=== PATIENT | female | born 1970 | race Hispanic/Latino ===

== ENCOUNTER 2017-12-20 13:01 | Emergency (ER) | payer SELFPAY ==
[2017-12-20] MEDS ORDERED: traMADol HCl 50 MG TAB ONE (13:24)
[2017-12-20] MEDS ORDERED: Ondansetron ODT 4 MG TAB ONE (13:24)
[2017-12-20] MEDS ORDERED: Diazepam 5 MG TAB ONE (13:24)
== END 2017-12-20 14:30 | disposition home or self-care (01) ==
LOC: ERS 13:01
DX: M54.5 Low back pain (principal)
CPT/HCPCS: 99283; Q0162

== ENCOUNTER 2018-07-21 11:06 | Emergency (ER) | payer SELFPAY ==
--- NOTE | 2018-07-21 11:47 | RAD ---
Right hip 2 views INDICATION: Low back pain with referral of pain into the right hip. COMPARISON: None FINDINGS: Bones: No acute osseous abnormality. Bone mineralization appears within normal limits. Hip joint: There is mild osteoarthrosis of the right hip. SI joints and symphysis pubis: There is mild degenerative change of the right SI joint and symphysis pubis. Intrapelvic contents: Visualized bowel gas pattern is within normal limits. Surrounding soft tissues: Radiographically normal. IMPRESSION: 1. No acute osseous abnormality.
[2018-07-21] MEDS ORDERED: Lorazepam 2 MG/ML VIAL ONE (12:55)
[2018-07-21] MEDS ORDERED: Dexamethasone 10 MG/ML VIAL ONE (12:55)
== END 2018-07-21 13:20 | disposition home or self-care (01) ==
LOC: ERS 11:06
DX: M54.41 Lumbago with sciatica, right side (principal)
CPT/HCPCS: 96372; J1100; J2060

== ENCOUNTER 2018-07-31 07:17 | Emergency (ER) | payer SELFPAY | END 2018-07-31 09:07 | disposition home or self-care (01) | LOC: ERS 07:17 | DX: M54.31 Sciatica, right side (principal) | CPT/HCPCS: 99283 ==

== ENCOUNTER 2018-09-27 10:19 | Emergency (ER) | payer SELFPAY ==
[2018-09-27 12:31] LABS: #Basophils 0.1 thou/uL (0.0-0.2); #Eosinphils 0.5 thou/uL (0.0-0.7); #Lymphocytes 1.7 thou/uL (1.20-3.40); #Monocytes 0.5 thou/uL (0.11-0.59); #Neutrophils 3.8 thou/uL (1.40-6.50); %Basophils 0.9 % (0.0-1.0); %Eosinophils 7.8 % (0.0-10.0); %Lymphocytes 26.1 % (21.0-51.0); %Monocytes 7.1 % (0.0-10.0); %Neutrophils 58.1 % (42.0-75.0); Hemoglobin 9.7 g/dL (12.0-16.0); Mean Corpuscular HGB CONC 34.1 g/dL (32.0-36.0); Mean Corpuscular Hemoglobin 31.3 pg (27.0-31.0); Mean Corpuscular Volume 91.7 fL (78.0-98.0); Mean Platelet Volume 6.1 fL (7.4-10.4); Platelet Count 362 thou/uL (130-400); RBC Distribution Width 11.7 % (11.5-14.5); Red Blood Cell (RBC) Count 3.09 mill/uL (4.20-5.40); White Blood Cell (WBC) Count 6.6 thou/uL (4.8-10.8)
[2018-09-27 12:41] LABS: ALT (SGPT) 43 U/L (8-55); AST (SGOT) 54 U/L (5-34); Alkaline Phosphatase 57 U/L (40-150); Anion Gap 13 mmol/L (10-20); BUN (Urea Nitrogen) 6 mg/dL (7.0-18.7); Bilirubin, Total 0.3 mg/dL (0.2-1.2); Calc. Creatinine Clearance 0 mL/min (70-130); Calcium 9.3 mg/dL (7.8-10.44); Carbon Dioxide 23 mmol/L (22-29); Chloride 102 mmol/L (98-107); Estimated GFR-MDRD 87; Globulin 2.9 g/dL (2.4-3.5); Glucose 266 mg/dL (70-105); Potassium 3.7 mmol/L (3.5-5.1); Protein, Total 6.9 g/dL (6.0-8.3); Sodium 134 mmol/L (136-145)
[2018-09-27 12:55] LABS: BHCG - Serum Negative (NEGATIVE); Pregs Control Background? CLEAR/WHITE (CLR/WHITE); Pregs Control Bar Appear? YES (CONTROL BAR)
--- NOTE | 2018-09-27 13:00 | ULT ---
PELVIC ULTRASOUND: HISTORY: Vaginal bleeding since the beginning of August. FINDINGS: Real-time imaging of the pelvis was obtained transabdominally as well as with an endovaginal probe. This shows a uterus measuring 3.9 x 4.7 x 8.3 cm. Endometrium is in the 7-8 mm range. The right and left ovaries are normal in size. A small follicle is seen involving the right ovary wh ich is subcentimeter in size and an approximately 2.8 cm left ovarian cyst is demonstrated. DOPPLER EVALUATION WITH SPECTRAL ANALYSIS: Normal flow is shown to both adnexa. IMPRESSION: 1. A 2.8 cm left ovarian cyst. 2. Heterogenous-appearing uterus, but no focal fibroids identified. POS: [facility]
== END 2018-09-27 12:59 | disposition home or self-care (01) ==
LOC: ERS 10:19
DX: N93.9 Abnormal uterine and vaginal bleeding, unspecified (principal); D64.9 Anemia, unspecified
CPT/HCPCS: 36415; 76856; 80053; 84703; 85025

== ENCOUNTER 2019-08-07 10:48 | Observation (INO) | payer SELFPAY ==
[2019-08-07 11:46] LABS: PTT 29.6 sec (22.9-36.1); Prothrombin Time 12.8 sec (12.0-14.7)
[2019-08-07 11:49] LABS: #Basophils 0.1 thou/uL (0.0-0.2); #Eosinphils 0.5 thou/uL (0.0-0.7); #Lymphocytes 2.3 thou/uL (1.20-3.40); #Monocytes 0.5 thou/uL (0.11-0.59); #Neutrophils 5.5 thou/uL (1.40-6.50); %Basophils 0.7 % (0.0-1.0); %Eosinophils 5.8 % (0.0-10.0); %Lymphocytes 25.5 % (21.0-51.0); %Monocytes 5.9 % (0.0-10.0); %Neutrophils 62.1 % (42.0-75.0); Hemoglobin 7.3 g/dL (12.0-16.0); Mean Corpuscular HGB CONC 30.7 g/dL (32.0-36.0); Mean Corpuscular Hemoglobin 21.4 pg (27.0-31.0); Mean Corpuscular Volume 69.7 fL (78.0-98.0); Mean Platelet Volume 7.7 fL (7.4-10.4); Platelet Count 491 thou/uL (130-400); White Blood Cell (WBC) Count 8.9 thou/uL (4.8-10.8)
[2019-08-07 11:53] LABS: BHCG - Serum Negative (NEGATIVE); Pregs Control Background? CLEAR/WHITE (CLR/WHITE); Pregs Control Bar Appear? YES (CONTROL BAR)
[2019-08-07 11:59] LABS: ALT (SGPT) 38 U/L (8-55); AST (SGOT) 49 U/L (5-34); Albumin 4.3 g/dL (3.5-5.0); Alkaline Phosphatase 75 U/L (40-110); Anion Gap 14 mmol/L (10-20); BUN (Urea Nitrogen) 7 mg/dL (7.0-18.7); Bilirubin, Total 0.3 mg/dL (0.2-1.2); Calc. Creatinine Clearance 0 mL/min (70-130); Calcium 9.1 mg/dL (7.8-10.44); Carbon Dioxide 23 mmol/L (22-29); Chloride 101 mmol/L (98-107); Estimated GFR-MDRD 79; Globulin 3.4 g/dL (2.4-3.5); Glucose 276 mg/dL (70-105); Protein, Total 7.7 g/dL (6.0-8.3); Sodium 134 mmol/L (136-145)
--- NOTE | 2019-08-07 14:38 | ULT ---
PELVIC ULTRASOUND INCLUDING TRANSABDOMINAL AND TRANSVAGINAL AND VASCULAR DUPLEX WITH COLOR AND SPECTR AL DOPPLER IMAGING: HISTORY: Heavy bleeding, anemia. COMPARISON: 09/27/2018. FINDINGS: Uterus is somewhat heterogeneously echogenic measuring 8.4 x 3.6 x 5.0 cm, but no focal fibroids. En dometrium 0.7 cm. Right ovary measures 2.9 x 3.3 x 4.7 cm and contains a 2.2 x 2.5 x 3.5 cm septated cyst. The left ov alberto is not visualized. Multiple nabothian cysts are noted. No abnormal fluid collection. IMPRESSION: Septated right ovarian cyst. Nonvisualized left ovary. Depending upon concern, a followup ultrasoun d in 1-3 months might be considered to evaluate the septated right ovarian cyst. POS: [facility]
[2019-08-07] MEDS ORDERED: Ondansetron PF 4 MG/2 ML Vial IVP PRN (15:54)
[2019-08-07] MEDS ORDERED: Acetaminophen 500 MG TAB PO PRN (15:54)
[2019-08-07] MEDS ORDERED: Ondansetron ODT 4 MG TAB PO PRN (15:54)
[2019-08-07 17:14] VITALS: BMI 31.4
[2019-08-07] MEDS ORDERED: medroxyPROGESTERone Acetate 5 MG TAB PO SCH (17:30)
[2019-08-07] MEDS ORDERED: medroxyPROGESTERone Acetate 2.5 MG TAB PO SCH (17:45)
[2019-08-07] MEDS: Sodium Chloride 0.9% 1,000 ML IV SCH ×2 (17:57→20:08)
[2019-08-07] MEDS: Estradiol 1 MG TAB PO SCH (20:08)
[2019-08-07] MEDS: Famotidine 20 MG TAB PO SCH (20:08)
--- NOTE | 2019-08-07 20:14 | HP ---
PRIMARY CARE PROVIDER: Dr. Roland at [facility], [place], [place]. CHIEF COMPLAINT: Fatigue, dizziness, and shortness of breath. HISTORY OF PRESENT ILLNESS: This is a 48-year-old female, who presents to [facility] Emergency Department complaining of 2-week history of progressive fatigue, dizziness, shortness of breath and decreased activity level. The patient admits to heavy menstrual cycle beginning 07/21/2019, saturating up to 8 pads per day with heavy clots. The patient states her normal cycles are approximately a week to week and a half, resolving. The patient admits to some lower abdominal cramping, but denied any recent exposure to hormones or previous history of hormone replacement. The patient denies any prior history of blood transfusions. The patient states she was originally scheduled for outpatient visit on 08/19/2019 at [facility], but has not had followup. The patient states she has had two prior C-sections. No recent instrumentation and states her last Pap smear was many years ago. The patient denies any prior history of abnormal Pap smears. The patient denies taking anticoagulants or aspirin and states she has allergies to NSAIDs. In the emergency room, the patient underwent general evaluation including CBC showing a hemoglobin of 7.3. Previous hemoglobin on record and [employer] shows a level of 9.7 on 09/27/2018. The patient was typed and crossed for 2 units of packed red blood cells and had a serum beta-hCG, which was negative. PAST MEDICAL HISTORY: 1. Carpal tunnel syndrome. 2. Anemia, likely iron deficiency. No prior transfusions. PAST SURGICAL HISTORY: 1. Status post cholecystectomy. 2. Status post section x2. 3. Status post right carpal tunnel release. CURRENT MEDICATIONS: Reviewed and negative. ALLERGIES: NSAIDS. FAMILY HISTORY: No inheritable disease per patient report. SOCIAL HISTORY: . Resides in the [place], [place] area. No current alcohol, tobacco, or illicit drug use. Functional of all activities of daily living. REVIEW OF SYSTEMS: CONSTITUTIONAL: Negative for weight loss or gain, ability to conduct usual activities. SKIN: Negative for rash, itching. EYES: Negative for double vision, pain. ENT/MOUTH: Negative for nose bleeding, neck stiffness, pain, tenderness. CARDIOVASCULAR: Negative for palpitations, dyspnea on exertion, orthopnea. RESPIRATORY: Negative for shortness of breath, wheezing, cough, hemoptysis, fever or night sweats. GASTROINTESTINAL: Negative for poor appetite, abdominal pain, heartburn, nausea , vomiting, constipation, or diarrhea. GENITOURINARY: Negative for urgency, frequency, dysuria, nocturia. MUSCULOSKELETAL: Negative for pain, swelling. NEUROLOGIC/PSYCHIATRIC: Negative for anxiety, depression. ALLERGY/IMMUNOLOGIC: Negative for skin rash, bleeding tendency. Otherwise negative except as stated per HPI. PHYSICAL EXAMINATION: VITAL SIGNS: On admission, blood pressure 128/81, pulse 96, respiratory rate 18 , temperature 98.7 degrees Fahrenheit, O2 saturation 99% on room air. GENERAL APPEARANCE: This is a 48-year-old female, alert and oriented x3, pleasant, responsive, in no acute distress. HEENT: Pupils are equal, round, reactive to light and accommodation. Extraocular muscles are intact. No scleral icterus. No conjunctival injection. Nares patent. OP is clear. Teeth in fair repair. NECK: Supple. No cervical adenopathy. No thyromegaly. No carotid bruits. No JVD appreciated. Cervical spine with full active and passive range of motion. No meningeal signs noted. CHEST: Lungs are clear to auscultation bilaterally. CARDIOVASCULAR EXAM: S1, S2 with tachycardia. No murmur, rub, or gallop appreciated. ABDOMEN: Obese, soft, nontender, and nondistended. Bowel sounds are positive in all 4 quadrants. There is no hepatosplenomegaly. No abdominal bruits. No rebound or guarding appreciated. EXTREMITIES: Warm and dry with fair turgor. No clubbing, cyanosis, or asymmetric edema appreciated. Pulses palpable distally at the dorsalis pedis, posterior tibial, and popliteal arteries bilaterally. Capillary refill less than 2 seconds. SKIN: Shows pale nailbeds. NEUROLOGIC: Cranial nerves 2 through 12 are grossly intact. No focal or lateralizing signs appreciated. PERTINENT LABORATORY AND X-RAY FINDINGS: Sodium 134, potassium 4.0, chloride 101, CO2 of 23, BUN 7, creatinine 0.78, estimated GFR 79, glucose 276, calcium 9.1, AST 49, ALT of 38, albumin 4.3. Serum beta-hCG negative. CBC showed a white blood cell count 8.9, hemoglobin 7.3, hematocrit 24, MCV 70, platelet count 491 with normal differential. PT 12.8, INR 1.0, PTT 29.6. Pelvic ultrasound dated 08/07/2019, showed septated right ovarian cyst. Nonvisualized left ovary. Endometrium 0.7 cm. ASSESSMENT AND PLAN: 1. Symptomatic anemia. The patient will be observed on the medical floor. Suspect secondary to menorrhagia. Type and cross for 2 units of packed red blood cells and transfuse when available. Serial CBC monitoring. Check iron studies, ferritin, reticulocyte count and stool Hemoccult. 2. Menorrhagia. Suspect underlying etiology to presentation. Consult the DIAL PAINTER hospitalist for further evaluation and coordination of outpatient followup. 3. Thrombocytosis. Suspect reactive in the context of #1. Repeat platelet count in the a.m. 4. Hyperglycemia. We will check A1c level in the a.m. Monitor serial Accu- Cheks. 5. Prophylaxis. SCDs while in bed. Pepcid 20 mg p.o. b.i.d. 6. Code status is full. Surrogate medical decision maker is the patient's spouse. Job ID: [id number] MTDD
--- NOTE | 2019-08-07 23:00 | CON ---
DATE OF CONSULTATION: 08/07/2019 CHIEF COMPLAINT: Menorrhagia with symptomatic anemia. HISTORY OF PRESENT ILLNESS: The patient is a 48-year-old female presenting with heavy vaginal bleeding since July 18. She reports that she has been using about 6 to 8 pads per day with about 50% saturation since that time. She reports a history of regular monthly predictable periods beginning in the middle of the month and lasting more than 5 days until this event. She has had one other episode about a year ago, where she reports she was bleeding for about 2 to 3 months. Other than those 2 episodes, she has had regular predictable periods. The patient does have an appointment in place at [facility] with Dr. Ny, but does not have an appointment set up for an MORTGAGE UNDERWRITER at this time. She reports dizziness, fatigue, lightheadedness, and headache upon presentation. She has attempted iron supplementation in the past, but reports it has caused her bad stomach aches. She denies smoking and denies any other medical conditions that she is aware of. The patient denies fever. She denies chest pain. Denies cough. Denies chest pain or shortness of breath. She denies any new rashes. She denies nausea or vomiting. She denies diarrhea or constipation. She denies hip problems, although she does report sore hips when she has her periods. PAST MEDICAL HISTORY: Negative. PAST SURGICAL HISTORY: She has had a cholecystectomy. She has also had 2 prior C-sections and she has had carpal tunnel surgery. FAMILY HISTORY: The patient reports her mother and her sisters have all had heavy periods around this time requiring hysterectomies. SOCIAL HISTORY: The patient reports social drinking. Again denies tobacco use or drug use. MEDICATIONS: None. ALLERGIES: IBUPROFEN. SHE REPORTS ANAPHYLACTIC REACTION AND WAS TAKEN TO THE HOSPITAL THE LAST TIME SHE USED IT. PHYSICAL EXAMINATION: VITAL SIGNS: Blood pressure 131/89, temperature 98.1, pulse of 93, respiratory rate 18, O2 sats 100% on room air. GENERAL: She appears to be in no acute distress. She is alert, oriented, cooperative, and pleasant to interact with. HEENT: Head is normocephalic and atraumatic. LUNGS: Clear to auscultation bilaterally. HEART: Has a regular rate and rhythm. ABDOMEN: Gravid and soft, nontender. EXTREMITIES: Nontender, nonedematous. Looking at the pad she has on time of evaluation is only slightly streaked and has not required a pad change since arriving to the emergency room. LABORATORY DATA: Hemoglobin 7.3, hematocrit 23.7, MCV of 69.7, and platelets of 491,000. AST of 49, ALT of 38. test is negative. Pelvic ultrasound shows a normal-appearing uterus with an endometrium of 0.7 cm and a small 2 x 3.5 cm septated cyst on the right ovary. ASSESSMENT AND PLAN: The patient is a 48-year-old female with a recent history of heavy vaginal bleeding resulting in symptomatic anemia and is being transfused currently. By history, the patient has a little concern for any kind of concerning pathology, i.e. endometrial cancer. She has a fairly thin endometrial stripe and no significant irregularities. The patient is a good candidate for a trial of oral contraceptive pills in an attempt to manage her periods for the next couple of years until she enters menopause. I have also ordered a TSH as this at times can be a source of irregular bleeding. The patient does not appear to have any symptoms concerning for hypothyroidism. Today, I have started her on 10 mg of medroxyprogesterone daily and 2 mg of estradiol daily while here in the hospital. I have also prescribed Sprintec for her to use in the foreseeable future to help manage her future periods as this may or may not be related to entering a perimenopausal state. The patient is currently without insurance, but if possible, I would recommend followup MORTGAGE UNDERWRITER to verify tolerance of the control pills and to make sure there are no other concerns or evaluation needed. I have submitted a referral to [facility] for followup should that be necessary. Otherwise, the patient can follow up with [facility] to continue management of her control use for bleeding control. Job ID: [id number]
[2019-08-08] MEDS: Sodium Chloride 0.9% 1,000 ML IV SCH (05:10)
[2019-08-08 05:45] LABS: Reticulocyte Count 2.2 % (0.5-1.5)
[2019-08-08 05:52] LABS: Hemoglobin A1c 7.4 % (4.0-6.0)
[2019-08-08 06:15] LABS: Anisocytosis SLIGHT = 6-15 cells (100X) (0-5/hpf); Band 1 % (5-11); Eosinophils 2 % (0-10); Hemoglobin 9.4 g/dL (12.0-16.0); Hypochromia SLIGHT = 6-15 cells (100X) (0-5/hpf); Lymphocytes 34 % (21-51); MDiff Complete? YES; Mean Corpuscular HGB CONC 29.4 g/dL (32.0-36.0); Mean Corpuscular Hemoglobin 22.1 pg (27.0-31.0); Mean Corpuscular Volume 75.3 fL (78.0-98.0); Mean Platelet Volume 8.7 fL (7.4-10.4); Microcytosis SLIGHT = 6-15 cells (100X) (0-5/hpf); Monocytes 9 % (0-10); Myelocyte 1 % (0-0); Neutrophil 53 % (42-75); Platelet Count 440 thou/uL (130-400); Platelet Morphology Comment Appears Increased; Polychromasia SLIGHT = 2-3 cells (100X) (0-2/hpf); RBC Distribution Width 18.8 % (11.5-14.5); Red Blood Cell (RBC) Count 4.26 mill/uL (4.20-5.40)
[2019-08-08 06:22] LABS: ALT (SGPT) 33 U/L (8-55); AST (SGOT) 35 U/L (5-34); Albumin 3.5 g/dL (3.5-5.0); Alkaline Phosphatase 63 U/L (40-110); Anion Gap 12 mmol/L (10-20); BUN (Urea Nitrogen) 5 mg/dL (7.0-18.7); Bilirubin, Total 0.6 mg/dL (0.2-1.2); Calc. Creatinine Clearance 126 mL/min (70-130); Carbon Dioxide 20 mmol/L (22-29); Chloride 105 mmol/L (98-107); Estimated GFR-MDRD Greater than 90; Glucose 221 mg/dL (70-105); Iron 97 ug/dL (50-170); Potassium 3.6 mmol/L (3.5-5.1); Protein, Total 6.5 g/dL (6.0-8.3); Sodium 133 mmol/L (136-145)
--- NOTE | 2019-08-08 07:36 | PRG ---
DATE OF SERVICE: 08/08/2019 SUBJECTIVE: The patient is a 48-year-old female, who was admitted for symptomatic anemia and history of menorrhagia. She has since received 2 units of packed red blood cells. Her bleeding, this morning, she reports has been scant, much improved since the last several weeks. She has changed her pad twice overnight with quarter-size staining. OBJECTIVE: VITAL SIGNS: This morning, blood pressure 125/82, heart rate of 91, respiratory rate of 18, saturating 98% on room air, and temperature 98.2. GENERAL: She appears to be in no acute distress. She is resting comfortably. LABORATORY DATA: TSH was 2.4. Her hemoglobin and hematocrit after her blood transfusion are 9.4 and 32.1. ASSESSMENT AND PLAN: The patient is a 48-year-old female with menorrhagia and acute blood loss anemia, status post 2 units of packed red blood cells. Her bleeding has pretty much spontaneously resolved. We did add medroxyprogesterone and some Estrace yesterday. I anticipate the patient being discharged home today. We from our standpoint will be signing off and have recommended followup with [facility] in the next few weeks should she continue to have problems. She does have Sprintec order at discharge for her to take as a means to control her periods and in the foreseeable future, those have been sent off to pharmacy of her choice. Thank you for the opportunity to work with Ms. Ortega. Job ID: [id number]
[2019-08-08] MEDS ORDERED: medroxyPROGESTERone Acetate 2.5 MG TAB PO SCH (09:00)
[2019-08-08] MEDS ORDERED: Estradiol 1 MG TAB PO SCH (09:00)
[2019-08-08] MEDS: Famotidine 20 MG TAB PO SCH (09:44)
[2019-08-08] MEDS: Estradiol 1 MG TAB PO SCH (09:44)
[2019-08-08 14:57] VITALS: BP 124/80; TEMP 97.8
--- NOTE | 2019-08-08 23:55 | DIS ---
DATE OF ADMISSION: 08/07/2019 DATE OF DISCHARGE: 08/08/2019 DISCHARGE DIAGNOSES: 1. Symptomatic anemia status post 2 units of packed red blood cells. 2. Menorrhagia. 3. Thrombocytosis, reactive. 4. Hyperglycemia with apparent new onset diagnosis of diabetes mellitus type 2. CONSULTATIONS: Dr. Powers with [facility]. PERTINENT LABORATORY AND X-RAY FINDINGS: Sodium ranged between 133 to 134. Hemoglobin A1c 7.4. Serum iron level 97, ferritin 17.72. AST 35, ALT of 33, alkaline phosphatase 63. Vitamin B12 level 271, folate 12.6, TSH 2.48. Serum beta hCG negative. CBC showed a hemoglobin ranging between 7.3 to 9.4, MCV 75, platelet count ranged between 440 to 491. Reticulocyte count 2.2. PT 12.8, INR 1.0, PTT 29.6. Pelvic ultrasound dated 08/07/2019, showed septated right ovarian cyst. HOSPITAL COURSE: The patient was initially evaluated after presenting with symptomatic anemia including dizziness, shortness of breath, and fatigue. Initial hemoglobin at 7.3, receiving 2 units of packed red blood cells with repeat hemoglobin of 9.4. The patient with concomitant menorrhagia, likely the underlying etiology of patient's presentation. The patient was evaluated by the COMMUNITY OUTREACH DIRECTOR hospitalist service with recommendations for hormone replacement therapy including control pills to control menstrual cycles. The patient received estradiol and progesterone with near resolution of the menorrhagia by the time of discharge. Current recommendations are for outpatient followup and continuation of hormone therapy. The patient was also noted with hyperglycemia with a hemoglobin A1c of 7.4. The patient was cautioned regarding ongoing dietary intake and may need additional medical therapy in addition to dietary measures and exercise. The patient verbalized understanding and agreement and will seek outpatient followup with her primary care provider to discuss treatment options and surveillance. I have examined the patient at the time of discharge and discussed followup instructions. The patient verbalized understanding and agreement ready for discharge on 08/08/2019. DISCHARGE MEDICATIONS: 1. Norgestimate-ethinyl estradiol one tablet p.o. daily. 2. Simvastatin 20 mg p.o. at bedtime. FOLLOWUP: The patient may follow up with her primary care provider, Ellyn Jarvis, at [facility] in [place], [place], within 5 to 7 days of discharge. The patient may follow up with [facility] in 2 to 3 weeks after discharge. CONDITION ON DISCHARGE: Stable. ACTIVITY: Ad-su. DIET: ADA and heart healthy. CODE STATUS: Full. DISPOSITION: Home on 08/08/2019. Job ID: [id number]
== END 2019-08-08 12:14 | disposition home or self-care (01) ==
LOC: ERS 10:48 → T4-B 14:21
PROVIDERS: ADMIT Family Medicine; ATTEND Family Medicine
DX: N92.0 Excessive and frequent menstruation with regular cycle (principal); D62 Acute posthemorrhagic anemia; D47.3 Essential (hemorrhagic) thrombocythemia; E11.65 Type 2 diabetes mellitus with hyperglycemia; Z88.6 Allergy status to analgesic agent; Z91.010 Allergy to peanuts
CPT/HCPCS: 36415; 36416; 36430; 76856; 80053; 82607; 82728; 82746; 83036; 83540; 84443; 84703; 85007; 85025; 85027; 85046; 85610; 85730; 86850; 86900; 86901; G0378; P9016

== ENCOUNTER 2019-10-17 11:12 | Emergency (ER) | payer SELFPAY ==
--- NOTE | 2019-10-17 11:42 | RAD ---
RADIOGRAPH CHEST 1 VIEW: DATE: 10/17/2019 HISTORY: Worsening chest pain right side FINDINGS: There are no airspace densities, pulmonary edema, pneumothorax, or cardiomegaly. IMPRESSION: No acute cardiopulmonary findings.
[2019-10-17 11:53] LABS: #Basophils 0.1 thou/uL (0.0-0.2); #Eosinphils 0.5 thou/uL (0.0-0.7); #Lymphocytes 2.1 thou/uL (1.20-3.40); #Monocytes 0.5 thou/uL (0.11-0.59); #Neutrophils 5.2 thou/uL (1.40-6.50); %Basophils 0.8 % (0.0-1.0); %Eosinophils 6.5 % (0.0-10.0); %Lymphocytes 25.3 % (21.0-51.0); %Monocytes 5.5 % (0.0-10.0); %Neutrophils 61.9 % (42.0-75.0); Hemoglobin 12.9 g/dL (12.0-16.0); Mean Corpuscular HGB CONC 32.9 g/dL (32.0-36.0); Mean Corpuscular Hemoglobin 29.4 pg (27.0-31.0); Mean Corpuscular Volume 89.4 fL (78.0-98.0); Mean Platelet Volume 7.9 fL (7.4-10.4); Platelet Count 418 thou/uL (130-400); RBC Distribution Width 18.3 % (11.5-14.5); Red Blood Cell (RBC) Count 4.38 mill/uL (4.20-5.40); White Blood Cell (WBC) Count 8.4 thou/uL (4.8-10.8)
[2019-10-17 12:14] LABS: ALT (SGPT) 32 U/L (8-55); AST (SGOT) 26 U/L (5-34); Alkaline Phosphatase 54 U/L (40-110); Anion Gap 15 mmol/L (10-20); BUN (Urea Nitrogen) 6 mg/dL (7.0-18.7); Bilirubin, Total 0.3 mg/dL (0.2-1.2); Calc. Creatinine Clearance 0 mL/min (70-130); Calcium 8.8 mg/dL (7.8-10.44); Carbon Dioxide 20 mmol/L (22-29); Chloride 103 mmol/L (98-107); Estimated GFR-MDRD 84; Globulin 3.1 g/dL (2.4-3.5); Glucose 187 mg/dL (70-105); Potassium 4.2 mmol/L (3.5-5.1); Protein, Total 7.1 g/dL (6.0-8.3); Sodium 134 mmol/L (136-145)
[2019-10-17] MEDS ORDERED: methylPREDNISolone Sod Succ/PF 125 MG/2 ML VIAL ONE (12:22)
== END 2019-10-17 12:36 | disposition home or self-care (01) ==
LOC: ERS 11:12
DX: R07.89 Other chest pain (principal); D64.9 Anemia, unspecified; Z79.899 Other long term (current) drug therapy
CPT/HCPCS: 36415; 71045; 80053; 84484; 85025; 93005; 96374; J2930

== ENCOUNTER 2021-03-29 23:58 | Emergency (ER) | payer SELFPAY ==
[2021-03-30 00:39] LABS: #Basophils 0.1 thou/uL (0.0-0.2); #Eosinphils 0.5 thou/uL (0.0-0.7); #Monocytes 0.5 thou/uL (0.11-0.59); #Neutrophils 3.3 thou/uL (1.40-6.50); %Basophils 1.2 % (0.0-1.0); %Eosinophils 6.7 % (0.0-10.0); %Lymphocytes 40.3 % (21.0-51.0); %Monocytes 7.1 % (0.0-10.0); %Neutrophils 44.7 % (42.0-75.0); Hemoglobin 12.7 g/dL (12.0-16.0); Mean Corpuscular HGB CONC 34.3 g/dL (32.0-36.0); Mean Corpuscular Hemoglobin 31.1 pg (27.0-31.0); Mean Corpuscular Volume 90.7 fL (78.0-98.0); Mean Platelet Volume 5.6 fL (7.4-10.4); Platelet Count 586 thou/uL (130-400); RBC Distribution Width 11.4 % (11.5-14.5); Red Blood Cell (RBC) Count 4.09 mill/uL (4.20-5.40); White Blood Cell (WBC) Count 7.4 thou/uL (4.8-10.8)
[2021-03-30 00:55] LABS: ALT (SGPT) 29 U/L (8-55); AST (SGOT) 21 U/L (5-34); Albumin 4.3 g/dL (3.5-5.0); Alkaline Phosphatase 74 U/L (40-110); Anion Gap 18 mmol/L (10-20); BUN (Urea Nitrogen) 11 mg/dL (7.0-18.7); Bilirubin, Total 0.2 mg/dL (0.2-1.2); Calc. Creatinine Clearance 0 mL/min (70-130); Calcium 9.9 mg/dL (7.8-10.44); Carbon Dioxide 20 mmol/L (22-29); Chloride 100 mmol/L (98-107); Globulin 3.9 g/dL (2.4-3.5); Glucose 195 mg/dL (70-105); Potassium 4.3 mmol/L (3.5-5.1); Protein, Total 8.2 g/dL (6.0-8.3); Sodium 134 mmol/L (136-145)
== END 2021-03-30 01:32 | disposition home or self-care (01) ==
LOC: ERS 23:58
DX: R09.81 Nasal congestion (principal); R53.1 Weakness; R53.83 Other fatigue; D64.9 Anemia, unspecified
CPT/HCPCS: 36415; 80053; 85025; 93005

== ENCOUNTER 2021-09-02 09:29 | Observation (INO) | payer SELFPAY ==
[2021-09-02 10:33] LABS: #Basophils 0.1 thou/uL (0.0-0.2); #Eosinphils 0.7 thou/uL (0.0-0.7); #Lymphocytes 2.2 thou/uL (1.20-3.40); #Monocytes 0.5 thou/uL (0.11-0.59); #Neutrophils 4.1 thou/uL (1.40-6.50); %Basophils 0.8 % (0.0-1.0); %Eosinophils 9.4 % (0.0-10.0); %Lymphocytes 29.1 % (21.0-51.0); %Monocytes 6.7 % (0.0-10.0); %Neutrophils 54.1 % (42.0-75.0); Hemoglobin 12.6 g/dL (12.0-16.0); Mean Corpuscular HGB CONC 33.3 g/dL (32.0-36.0); Mean Platelet Volume 6.3 fL (7.4-10.4); Platelet Count 390 thou/uL (130-400); RBC Distribution Width 12.1 % (11.5-14.5); Red Blood Cell (RBC) Count 4.08 mill/uL (4.20-5.40); White Blood Cell (WBC) Count 7.6 thou/uL (4.8-10.8)
[2021-09-02 11:03] LABS: ALT (SGPT) 23 U/L (8-55); AST (SGOT) 17 U/L (5-34); Albumin 4.2 g/dL (3.5-5.0); Alkaline Phosphatase 67 U/L (40-110); Anion Gap 14 mmol/L (10-20); BUN (Urea Nitrogen) 8 mg/dL (7.0-18.7); Bilirubin, Total 0.3 mg/dL (0.2-1.2); Calc. Creatinine Clearance 0 mL/min (70-130); Calcium 9.5 mg/dL (7.8-10.44); Carbon Dioxide 25 mmol/L (22-29); Chloride 102 mmol/L (98-107); Globulin 3.3 g/dL (2.4-3.5); Glucose 198 mg/dL (70-105); Potassium 4.1 mmol/L (3.5-5.1); Protein, Total 7.5 g/dL (6.0-8.3); Sodium 137 mmol/L (136-145)
[2021-09-02] MEDS ORDERED: Iopamidol-370 76% 500 ML 1 ML ONE (11:40)
[2021-09-02] MEDS ORDERED: Acetaminophen 325 MG TAB PO PRN (14:13)
[2021-09-02] MEDS ORDERED: Ondansetron ODT 4 MG TAB PO PRN (14:13)
[2021-09-02] MEDS ORDERED: Acetaminophen 650 MG Suppository PR PRN (14:13)
[2021-09-02] MEDS ORDERED: Ondansetron PF 4 MG/2 ML Vial IVP PRN (14:13)
[2021-09-02 14:20] LABS: Troponin I Less than 0.010 ng/mL (< 0.028)
[2021-09-02] MEDS ORDERED: hydrALAZINE 20 MG/ML VIAL SLOW IVP PRN (14:21)
[2021-09-02 14:29] LABS: BHCG - Serum Negative (NEGATIVE); Pregs Control Background? CLEAR/WHITE (CLR/WHITE); Pregs Control Bar Appear? YES (CONTROL BAR)
[2021-09-02 15:49] VITALS: BMI 30.2
[2021-09-02] MEDS ORDERED: Atorvastatin Calcium 10 MG TAB PO SCH (21:00)
[2021-09-03 05:06] LABS: #Eosinphils 0.8 thou/uL (0.0-0.7); #Lymphocytes 2.9 thou/uL (1.20-3.40); #Monocytes 0.5 thou/uL (0.11-0.59); #Neutrophils 3.5 thou/uL (1.40-6.50); %Basophils 0.5 % (0.0-1.0); %Eosinophils 9.8 % (0.0-10.0); %Lymphocytes 37.6 % (21.0-51.0); %Monocytes 6.9 % (0.0-10.0); %Neutrophils 45.2 % (42.0-75.0); Hemoglobin 11.6 g/dL (12.0-16.0); Mean Corpuscular HGB CONC 33.6 g/dL (32.0-36.0); Mean Corpuscular Hemoglobin 31.7 pg (27.0-31.0); Mean Corpuscular Volume 94.5 fL (78.0-98.0); Mean Platelet Volume 6.3 fL (7.4-10.4); Platelet Count 326 thou/uL (130-400); Red Blood Cell (RBC) Count 3.66 mill/uL (4.20-5.40); White Blood Cell (WBC) Count 7.8 thou/uL (4.8-10.8)
[2021-09-03 05:27] LABS: Anion Gap 13 mmol/L (10-20); BUN (Urea Nitrogen) 9 mg/dL (7.0-18.7); Calc. Creatinine Clearance 102 mL/min (70-130); Calcium 9.1 mg/dL (7.8-10.44); Carbon Dioxide 26 mmol/L (22-29); Cardiac Risk 5.4 (Less than 4.5); Chloride 103 mmol/L (98-107); Cholesterol 265 mg/dl (< 200 Desired); Glucose 171 mg/dL (70-105); HDL Cholesterol 49 mg/dL (>60 Neg Risk); LDL Cholesterol, Calculated 179 mg/dL; Potassium 4.1 mmol/L (3.5-5.1); Sodium 138 mmol/L (136-145); Triglycerides 183 mg/dL (Less than 150)
[2021-09-03] MEDS ORDERED: Aspirin Chewable 81 MG TAB PO SCH (09:00)
[2021-09-03] MEDS ORDERED: Regadenoson 0.4 MG/5 ML SYRINGE ONE (09:53)
[2021-09-03 13:04] VITALS: BP 136/75; TEMP 98.2
== END 2021-09-03 15:34 | disposition home or self-care (01) ==
LOC: ERS 09:29 → 2SW 13:37 → INTOOBSV 09-03 07:39 → OBSVTOIN 09-03 07:39
PROVIDERS: ADMIT Internal Medicine; ATTEND Internal Medicine
DX: R06.02 Shortness of breath (principal); R07.9 Chest pain, unspecified; I10 Essential (primary) hypertension; E78.5 Hyperlipidemia, unspecified; E11.9 Type 2 diabetes mellitus without complications; E66.9 Obesity, unspecified; Z68.30 Body mass index [BMI] 30.0-30.9, adult; Z79.82 Long term (current) use of aspirin; Z79.84 Long term (current) use of oral hypoglycemic drugs; Z79.899 Other long term (current) drug therapy; Z88.6 Allergy status to analgesic agent; Z91.010 Allergy to peanuts; Z20.822 Contact with and (suspected) exposure to COVID-19
CPT/HCPCS: 36415; 71045; 71275; 78452; 80048; 80053; 80061; 83880; 84484; 84702; 84703; 85025; 93005; 93017; 94760; A9500; G0378; J2785; Q9967; U0003; U0005

== ENCOUNTER 2023-12-19 22:30 | Emergency (ER) | payer SELFPAY ==
[2023-12-19 23:29] LABS: #Basophils 0.07 10x3/uL (0.0-0.2); %Basophils 0.9 % (0.0-1.0); %Eosinophils 7.3 % (0.0-10.0); %Lymphocytes 37.7 % (21.0-51.0); %Monocytes 6.2 % (0.0-10.0); %Neutrophils 47.1 % (42.0-75.0); Hematocrit 37.1 % (36.0-47.0); Hemoglobin 12.3 g/dL (12.0-16.0); Mean Corpuscular HGB CONC 33.2 g/dL (32.0-36.0); Mean Corpuscular Hemoglobin 30.5 pg (27.0-31.0); Mean Corpuscular Volume 92.1 fL (78.0-98.0); Platelet Count 342 10x3/uL (130-400); RBC Distribution Width 12.6 % (11.5-14.5); Red Blood Cell (RBC) Count 4.03 mill/uL (4.20-5.40)
[2023-12-19 23:51] LABS: ALT (SGPT) 29 U/L (8-55); AST (SGOT) 18 U/L (5-34); Albumin 3.8 g/dL (3.5-5.0); Alkaline Phosphatase 111 U/L (40-110); Anion Gap 15 mmol/L (10-20); BUN (Urea Nitrogen) 14 mg/dL (9.8-20.1); Bilirubin, Total 0.2 mg/dL (0.2-1.2); Calc. Creatinine Clearance 0 mL/min (70-130); Calcium 9.6 mg/dL (7.8-10.44); Carbon Dioxide 21 mmol/L (22-29); Chloride 104 mmol/L (98-107); Estimated GFR 74; Glucose 395 mg/dL (70-105); Potassium 3.9 mmol/L (3.5-5.1); Protein, Total 7.8 g/dL (6.0-8.3); Sodium 136 mmol/L (136-145)
[2023-12-19 23:56] LABS: Troponin I Less than 0.010 ng/mL (< 0.028)
[2023-12-20 01:55] LABS: Bacteria/HPF 3+ HPF (None Seen); Bilirubin Negative (Negative); Blood, Urine Negative (Negative); CAUTI Indications for Culture Pelvic or flank pain; Clarity Clear (Clear); Glucose, Urine (Dipstick) Greater than 1000 mg/dL (Negative); Ketone, Urine Negative (Negative); Leukocyte 25 Leu/uL (Negative); Nitrite Negative (Negative); Protein, Urine (Dipstick) Negative (Neg-Trace); RBC/HPF 0-3 HPF (0-3); Specific Gravity, Urine 1.026 (1.002-1.036); Urobilinogen Normal mg/dL (Less than 2); WBC/HPF 21-50 HPF (0-3)
[2023-12-20 02:00] LABS: Urine Culture Reflex Yes Yes
[2023-12-20] MEDS ORDERED: Cephalexin 250 MG CAP ONE (02:31)
== END 2023-12-20 02:29 | disposition home or self-care (01) ==
LOC: ERS 22:30
DX: N39.0 Urinary tract infection, site not specified (principal); R53.83 Other fatigue; I10 Essential (primary) hypertension; E11.9 Type 2 diabetes mellitus without complications
CPT/HCPCS: 36415; 80053; 81001; 84484; 85025; 87077; 87086; 93005; 99283